=== PATIENT | male | born 1930 | race Caucasian/White ===

== ENCOUNTER 2019-11-26 09:59 | Emergency (ER) | payer OTHER ==
[~2019-11-26] VITALS: Ht 177.8 cm; Wt 96.8 kg
[2019-11-26 10:47] LABS: BE -4.3 mmol/L (-2 to +3); PCO2 25.7 mmHg (35.0-45.0); PO2 87.1 mmHg (75.0-100.0); pH 7.463 (7.340-7.450)
[2019-11-26 11:06] LABS: CALCIUM 8.6 mg/dL (8.5-10.1); CREATININE 1.1 mg/dL (0.6-1.3); POTASSIUM 3.7 mmol/L (3.5-5.1)
[2019-11-26 11:07] LABS: APTT 24.2 Seconds (25.0-31.3); INR 1.1; PROTIME 11.8 Seconds (9.20-11.50)
[2019-11-26 11:08] LABS: ABSOLUTE BASOPHILS 0.1 thou/uL (0.0-0.2); ABSOLUTE LYMPHOCYTES 0.5 thou/uL (0.8-5.3); ABSOLUTE MONOCYTES 0.7 thou/uL (0.0-1.2); ABSOLUTE NEUTROPHILS 6.4 thou/uL (1.6-8.1); BASOPHILS 0.8 %; EOSINOPHILS 0.1 %; HEMATOCRIT 38.8 % (42.0-52.0); HEMOGLOBIN 13.1 gm/dL (14.0-18.0); LYMPHOCYTES 6.1 %; MCH 36.6 pg (26.0-34.0); MCHC 33.9 g/dL (28.0-37.0); MCV 108.1 fL (80.0-100.0); MONOCYTES 9.3 %; MPV 9.2 fl. (7.2-11.1); NUCLEATED RBCS 0 /100WBC; PLATELET COUNT* 112 thou/uL (150-400); POLYS 83.7 %; RBC 3.59 mil/uL (4.50-6.00); RDW-CV 22.1 % (10.5-14.5); WBC 7.6 thou/uL (4.0-11.0)
[2019-11-26 11:17] LABS: TOTAL BILIRUBIN 1.3 mg/dL (<0.1-1.0)
[2019-11-26 12:56] LABS: ANISOCYTOSIS 2+; HYPOCHROMASIA 2+; OVALOCYTES 1+; PLATELET ESTIMATE DECREASED; POIKILOCYTOSIS 1+
[2019-11-26 12:57] LABS: MACROCYTES 1+
--- NOTE | 2019-11-26 15:04 | EKG ---
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
[2019-11-26 15:35] VITALS: BP 123/82
== END 2019-11-26 15:35 | disposition short-term general hospital (02) ==
LOC: M.ERS 09:59
PROVIDERS: Personal Emergency Response Attendant
DX: I63.9 Cerebral infarction, unspecified (principal); Z20.828 Contact with and (suspected) exposure to other viral communicable diseases; R60.0 Localized edema; M79.604 Pain in right leg